=== PATIENT | male | born 1995 | race Caucasian/White ===

== ENCOUNTER 2018-03-11 13:04 | Emergency (ER) | payer OTHER ==
[~2018-03-11] VITALS: Ht 177.8 cm; Wt 61.4 kg
[2018-03-11] MEDS ORDERED: MUCI600T37 PO (14:17)
[2018-03-11] MEDS ORDERED: SUDA30TA8 PO (14:17)
[2018-03-11] MEDS ORDERED: TESS100C PO (14:17)
[2018-03-11 14:30] VITALS: BP 114/76
== END 2018-03-11 14:32 | disposition home or self-care (01) ==
LOC: M ED 13:04
DX: J20.9 Acute bronchitis, unspecified (principal); R09.81 Nasal congestion; Z87.891 Personal history of nicotine dependence; Z88.0 Allergy status to penicillin; Z91.89 Other specified personal risk factors, not elsewhere classified